=== PATIENT | female | born 1960 | race Caucasian/White ===

== ENCOUNTER 2019-03-09 09:52 | Inpatient (IN) ==
[2019-03-09] MEDS ORDERED: DUONEB (A & A) INH PRN (11:24)
[2019-03-09] MEDS ORDERED: TYLENOL PO PRN (12:12)
--- NOTE | 2019-03-09 12:16 | Diag Imaging Result Doc PS360 ---
CHEST-2 VIEWS - 03/09/2019 INDICATION: ASPIRATION COMPARISON: None FINDINGS: There are some linear opacities in the right middle lobe most likely atelectasis. No other infiltrates. No pneumothorax or pleural effusion. Heart size and pulmonary vascularity is normal. IMPRESSION: Mild linear infiltrates/atelectasis in the right middle lobe. Electronically signed by Patric Ruby 03/09/2019 12:14 PM
[2019-03-09 13:03] LABS: BASO# 0.03 X1000 (0.0-0.2); BASO% 0.3 % (0.0-0.8); EOS# 0.22 X1000 (0.0-0.7); HEMATOCRIT 38.9 % (37.0-47.0); HEMOGLOBIN 12.7 g/dL (12.0-16.0); LYMPH# 1.79 X1000 (1.2-3.4); LYMPH% 16.5 % (20.5-51.1); MCH 28.7 PG (27-31); MCHC 32.6 g/dL (33-37); MONO# 0.34 X1000 (0.11-0.59); MONO% 3.1 % (1.7-9.3); MPV 10.2 FL (7.4-10.4); NEUT# 8.47 X1000 (1.4-6.5); NEUT% 78.1 % (42.2-75.2); PLT 187 X1000 (130-400); RBC 4.42 XMIL (4.2-5.4); RDW 14.1 % (11.5-14.5); WBC 10.85 X1000 (4.8-10.8)
[2019-03-09 13:18] LABS: ALB/GLOB RATIO 1.6; ALBUMIN 4.1 g/dL (3.5-5.0); CALCIUM 9.8 mg/dL (8.8-10.2); CREATININE 1.4 mg/dL (0.5-0.9); POTASSIUM 5.3 mmol/L (3.5-5.1); TOTAL BILIRUBIN 0.27 mg/dL (0.20-1.00); TOTAL PROTEIN 6.7 g/dL (6.3-8.3)
[2019-03-09] MEDS: PERCOCET-5 PO PRN ×2 (14:23→20:47)
[2019-03-09] MEDS: LYRICA PO SCH ×2 (14:29→20:48)
[2019-03-09] MEDS: BENTYL PO SCH ×3 (14:29→20:47)
[2019-03-09] MEDS: ZOSYN 3.375 GM in NS 50 ML IV SCH ×2 (14:29→20:48)
[2019-03-09] MEDS: DUONEB (A & A) INH SCH ×3 (15:45→23:08)
--- NOTE | 2019-03-09 15:53 | HISTORY AND PHYSICAL ---
CHIEF COMPLAINT: Aspiration, postop toe amputation. HISTORY OF PRESENT ILLNESS: This is a 58-year-old female with a history of diabetes mellitus type 2, hypertension, hypothyroid, neuropathy, gastroesophageal reflux disease. She [facility] as a direct [facility] status post a left 5th toe amputation and aspiration. The patient states that she does have bad reflux and she ate ice cream through the night and feels this may be the culprit. PAST MEDICAL HISTORY: 1. Diabetes mellitus type 2. 2. Hypertension. 3. Hypothyroid. 4. Peripheral neuropathy. 5. Gastroesophageal reflux disease. 6. Chronic kidney disease with a creatinine 1.5 in November 2017 with a GFR 36 in November 2017. PAST SURGICAL HISTORY: Hysterectomy. SOCIAL HISTORY: She denies alcohol or illicit drug use. Positive for tobacco use, although she quit in 2002. ALLERGIES: No known drug allergies. HOME MEDICATIONS: Aspirin, Bentyl, estradiol, Tricor, Lasix, Synthroid, lisinopril, Lyrica, Ultram, metformin, metoprolol, and potassium supplement. REVIEW OF SYSTEMS: Discussed with patient with pertinent positives stated in HPI. She denied any syncope, dizziness, any chest pain, palpitations, shortness of breath, cough, fever, chills, any night sweats, recent weight loss or weight gain, any nausea, vomiting, diarrhea, constipation, black or bloody vomitus or stools, any hematuria, dysuria, frequency, or urgency. PHYSICAL EXAMINATION: GENERAL: This is a 58-year-old female who is sitting up on the bedside in the medical/surgical floor in no distress. EYES: Pupils equal, round, react to light. EOMs are intact. Sclerae anicteric. HEENT: Head is normocephalic, atraumatic. Mucous membranes are moist. NECK: Supple. Trachea midline. CARDIOVASCULAR: Regular rate and rhythm. S1, S2 appreciated. She has no lower extremity edema. Calves are nontender bilateral. Note she does have a dressing that is dry and intact to her left lower extremity. PULMONARY: Breath sounds are clear with no increased work of breathing noted. Chest rises and falls symmetrically with respiration. Chest wall is nontender to palpation. GASTROINTESTINAL: Abdomen is soft, nontender, nondistended. Bowel sounds in all 4 quadrants. GENITOURINARY: She has no CVA or suprapubic tenderness. ASSESSMENT AND PLAN: 1. Aspiration pneumonia. We will obtain blood cultures. Obtain a PA and lateral chest x-ray. Start Zosyn for antibiotic coverage. We will check a stat CBC and CMP now in the morning. Start incentive spirometer as ordered. DuoNeb q.4 h. when awake. 2. Chronic kidney disease. In review of the patient's past records in May 2018 she had a creatinine of 1.5 with a GFR of 36. We will hold her lisinopril and metformin. We will repeat obtain a CMP and then further medications adjustments will be per labs. 3. Diabetes mellitus, type 2. She will be placed on pattern blood glucose with sliding scale insulin. 4. Hypertension. We will identify her medications and continue as appropriate. 5. Hypothyroid. We will continue her Synthroid. 6. Peripheral neuropathy. Will restart her Lyrica. 7. Gastroesophageal reflux disease. Start Prilosec. 8. Status post left 5th toe amputation. Needs to elevate her foot at all times except when up to go the bathroom. Further treatments per Orthopedics. Further treatments pending discussion with Dr. Soriano and hospital course. Dictated by SJ Barton for Ermias Soriano MD cc: SJ Barton MD
[2019-03-09] MEDS ORDERED: GLUCOPHAGE PO SCH (17:00)
[2019-03-09] MEDS: HUMALOG SUBQ SCH ×2 (17:15→20:54)
[2019-03-10] MEDS: PERCOCET-5 PO PRN ×4 (01:39→15:31)
[2019-03-10] MEDS: ZOSYN 3.375 GM in NS 50 ML IV SCH ×3 (03:16→14:24)
[2019-03-10] MEDS: PRILOSEC PO SCH ×2 (05:53→07:34)
[2019-03-10] MEDS: SYNTHROID PO SCH ×2 (05:53→08:12)
[2019-03-10 06:12] LABS: BASO# 0.05 X1000 (0.0-0.2); BASO% 0.6 % (0.0-0.8); EOS# 0.23 X1000 (0.0-0.7); EOS% 2.8 % (0.0-10.0); HEMATOCRIT 34.6 % (37.0-47.0); HEMOGLOBIN 10.9 g/dL (12.0-16.0); LYMPH# 2.42 X1000 (1.2-3.4); LYMPH% 29.8 % (20.5-51.1); MCHC 31.5 g/dL (33-37); MCV 88.9 FL (81-99); MONO# 0.47 X1000 (0.11-0.59); MONO% 5.8 % (1.7-9.3); MPV 10.3 FL (7.4-10.4); NEUT# 4.95 X1000 (1.4-6.5); PLT 169 X1000 (130-400); RBC 3.89 XMIL (4.2-5.4); RDW 14.2 % (11.5-14.5); WBC 8.12 X1000 (4.8-10.8)
[2019-03-10 06:20] LABS: ALB/GLOB RATIO 1.5; ALBUMIN 3.8 g/dL (3.5-5.0); CALCIUM 8.9 mg/dL (8.8-10.2); CREATININE 1.5 mg/dL (0.5-0.9); POTASSIUM 4.6 mmol/L (3.5-5.1); TOTAL BILIRUBIN 0.47 mg/dL (0.20-1.00); TOTAL PROTEIN 6.4 g/dL (6.3-8.3)
[2019-03-10] MEDS: DUONEB (A & A) INH SCH ×2 (07:46→11:39)
[2019-03-10] MEDS: HUMALOG SUBQ SCH ×2 (07:51→10:44)
[2019-03-10] MEDS: LYRICA PO SCH (08:50)
[2019-03-10] MEDS: BENTYL PO SCH ×2 (08:52→14:26)
[2019-03-10] MEDS ORDERED: ASPIRIN EC PO SCH (09:00)
[2019-03-10] MEDS ORDERED: KLOR-CON PO SCH (09:00)
[2019-03-10] MEDS ORDERED: ESTRACE PO SCH (09:00)
[2019-03-10] MEDS ORDERED: TRICOR PO SCH (09:00)
[2019-03-10] MEDS ORDERED: LASIX PO SCH (09:00)
[2019-03-10] MEDS ORDERED: LOPRESSOR PO SCH (09:00)
[2019-03-10] MEDS ORDERED: PRINIVIL PO SCH (09:00)
--- NOTE | 2019-03-10 09:57 | Diag Imaging Result Doc PS360 ---
CHEST-2 VIEWS - 03/10/2019 INDICATION: ASPIRATION COMPARISON: 03/09/2019 FINDINGS: The lungs are normally expanded and clear. Heart size and mediastinal contours are normal. No pneumothorax or pleural effusion. IMPRESSION: Negative exam. Electronically signed by Patric Ruby 03/10/2019 9:55 AM
[2019-03-10 15:06] VITALS: BP 115/61
--- NOTE | 2019-03-10 17:44 | DISCHARGE SUMMARY ---
ADMISSION DATE: 03/09/2019 DISCHARGE DATE: 03/10/2019 DISPOSITION: Home. FOLLOW-UP: Follow-up will be with: 1. Dr. Quincy Mayorga. 2. Dr. Diamond. CONSULTATION DURING THIS ADMISSION: Dr. Diamond was consulted. ADMISSION DIAGNOSES: 1. Aspiration pneumonitis. 2. Chronic kidney disease. 3. Diabetes mellitus. 4. Peripheral neuropathy. DISCHARGE DIAGNOSES: 1. Diabetic foot ulcer with ulceration to the 5th toe status post amputation. 2. Aspiration pneumonitis after surgery ( endotracheal intubation during surgery). 3. Chronic kidney disease, stage 3A. 4. Diabetes mellitus, type 2, controlled. 5. Peripheral diabetic neuropathy. 6. Hypothyroidism. 7. Hypertension. DISCHARGE MEDICATION: 1. Furosemide 40 mg daily. 2. Levothyroxine 50 mcg daily. 3. Metformin 500 b.i.d. 4. Metoprolol 50 mg p.o. daily. 5. Tramadol 50 mg p.o. q.6 h. 6. Lisinopril 20 mg p.o. daily. 7. Pregabalin 200 mg b.i.d. 8. Aspirin 325 mg daily. PRESENTING COMPLAINT: Postoperative shortness of breath. HISTORY OF PRESENTING COMPLAINT: Ms. Donald is a 58-year-old, who was admitted from the surgery center because she underwent 5th toe amputation and apparently had a lot of reflux and aspirated. After surgery, was admitted for overnight observation. During the hospital course, Ms. Donald was admitted to the medical floor. Was started on oxygen therapy. Initially, antibiotics were started; however, chest x-rays were done, which were unremarkable. This morning, she feels a whole lot better. No shortness of breath. A repeat chest x-ray is better, and Orthopedics thinks that from their standpoint patient is okay for discharge. At the time of discharge, her vitals, blood pressure is 115/61, pulse is 73, respirations 16, temperature 98.9 degrees. The patient is stable condition for discharge. She will follow up with Dr. Diamond. COORDINATION TIME: Time spent for discharge is 33 minutes. cc: MD CR Saldaña
== END 2019-03-10 15:48 | disposition home or self-care (01) | DRG 178 ==
LOC: DIRADM → SUATTDRO 09:52 → OBSVTOIN 09:52 → 4N 10:49
PROVIDERS: ATTEND Internal Medicine
CPT/HCPCS: 71020; 71046; 80053; 82948; 85025; 87040; 94640; 94761; 94799; A9270; J1815; J2543; XXXXX